=== PATIENT | male | born 2005 | race Caucasian/White ===

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

== ENCOUNTER 2024-04-06 12:03 | Outpatient (CLI) | payer OTHER, SELFPAY ==
--- NOTE | 2024-04-06 12:08 | XR_ITS ---
FINAL REPORT TECHNIQUE: Chest PA & Lateral CLINICAL HISTORY: SHORTNESS OF BREATH COMPARISON: 11/26/2022 FINDINGS: 2 views of the chest were performed. The heart size is normal. The mediastinum is within normal limits. There is no acute cardiopulmonary process. There are no pleural effusions. There is no pneumothorax. The bony thorax appears intact. IMPRESSION: No acute cardiopulmonary process. Reviewed, Interpreted and Dictated by Jamshid Oneil MD Transcribed by Rosaura Chisholm Authenticated and [facility]
== END 2024-04-06 23:59 | disposition home or self-care (01) ==
LOC: RAD 12:05
PROVIDERS: PCP Family Medicine; Visit Provider Nurse Practitioner
DX: R06.02 Shortness of breath (principal)
CPT/HCPCS: 71046

== ENCOUNTER 2024-04-06 19:26 | Emergency (ER) | payer OTHER, SELFPAY ==
[2024-04-06 19:30] VITALS: BP 136/89; PULSE 51; RESP 18; TEMP 36.9; O2SAT 97; BMI 17.4
--- NOTE | 2024-04-06 19:55 | ED_ITS ---
Discharge Plan Disposition Patient Disposition: Home, Self-Care Condition: Good Prescriptions Prescriptions: New amoxicillin-pot clavulanate 875-125 mg Tablet 1 tab PO Q12H Qty: 20 0RF ibuprofen 600 mg tablet 600 mg PO Q6HP PRN (Reason: Moderate Pain) Qty: 20 0RF Referrals Follow up/Referrals: Thomas Mello MD [Primary Care Provider] - See instructions Activity Restrictions/Add. Instructions Additional Instructions/Restrictions: Take medication as prescribed Use dental balls as you was instructed Warm salt water gargles may help with pain Call Dentist tomorrow and make appointment Clinical Impressions Clinical Impression: Dental infection Instructions Patient Instructions: DI for Dental Pain, DI for Tooth Abscess Discharge ED Provider: Taylor Adams [facility] General Stated complaint: RT side dental pain Mode of Arrival: Ambulatory Source of Information: Patient Limitations: No Limitations Time Seen by Provider: 04/06/24 19:55 Description of Symptoms (Recalled from Triage Doc. by RN): Pt's symptoms are top right jaw dental pain. HEENT Symptoms (Recalled from RN notes): Yes Resp Symptoms (Recalled from RN notes): No Skin Symptoms (Recalled from RN notes): No MS Symptoms (Recalled from RN notes): No Functional Status (Recalled from RN notes): n/a History of Present Illness Provider Complaint: Patient states that he has multiple broken and decaying teeth on his right upper jaw area States that he has been having some swelling and dental pain for several days and today the swelling and pain in his gums is worse so he came in to get some antibiotics to help with the infection until he can get into the dentist Related Data Previous Rx's Medication Instructions Recorded amoxicillin 875 mg-potassium 1 tab PO Q12H #20 tabs 04/06/24 clavulanate 125 mg tablet ibuprofen 600 mg tablet 600 mg PO Q6HP PRN Moderate Pain 04/06/24 #20 tabs Allergies Allergy/AdvReac Type Severity Reaction Status Date / Time No Known Allergies Allergy Verified 04/06/24 19:40 Worker's Comp Is this a Worker's Comp case?: No [facility] Disclaimer: The information contained in this section may have been updated after the patient was seen, as this information can be updated by other users. Social History Smoking Status: Never smoker alcohol intake: never substance use type: denies use current occupational status: student Travel in the last 8 weeks: None household members: family housing: house ROS Obtained: Yes All systems reviewed & no additional complaints except as documented and Yes Systems reviewed as appropriate & no additional complaints except as documented Constitutional Constitutional: Reports system reviewed and no additional complaints, except as documented and Reports as per HPI ENT Ears, Nose, Mouth, and Throat: Reports system reviewed and no additional complaints, except as documented, Reports as per HPI and Reports dental pain Cardiovascular Cardiovascular: Reports system reviewed and no additional complaints, except as documented and Reports as per HPI Respiratory Respiratory: Reports system reviewed and no additional complaints, except as documented and Reports as per HPI Gastrointestinal Gastrointestingal: Reports system reviewed and no additional complaints, except as documented and as per HPI Physical Exam General General appearance: alert and in no apparent distress ENT ENT exam: Present mucous membranes moist Expanded ENT Exam Teeth exam: Present dental caries, fractured tooth # and gingival swelling Respiratory Respiratory exam: Present normal lung sounds bilaterally; Absent respiratory distress or wheezes Cardiovascular Cardiovascular exam: Present regular rate, normal rhythm and normal heart sounds Neurological Exam Neurological exam: Present alert, oriented X3 and normal gait Medical Decision Making Sang Inquiry Pt receiving controlled substance: No Sang was queried for this patient: No Vital Signs: 04/06/24 19:30 Temperature 98.4 F Temperature Source Oral Pulse Rate [Right Radial] 51 L Respiratory Rate 18 Blood Pressure [Right Arm] 136/89 Blood Pressure Mean [Right Arm] 104 Blood Pressure Source [Right Arm] Automatic Cuff Blood Pressure Position [Right Arm] Sitting 02 Sat by Pulse Oximetry 97 Oxygen Delivery Method Room Air
[2024-04-06] MEDS: TETRACAINE/BENZOCAINE/BUTAMBEN 56 GM SPRAY TP (20:09)
[2024-04-06] MEDS: AMOXICILLIN/POT CLAVULAN 500MG TABLET 1 EACH PO (20:09)
[2024-04-06] MEDS: LIDOCAINE 2% VISCOUS SOL 15ML UDC 15 ML PO (20:09)
[2024-04-06 20:23] VITALS: BP 136/89; PULSE 51; RESP 18; TEMP 36.9; O2SAT 97
== END 2024-04-06 20:23 | disposition home or self-care (01) ==
PROVIDERS: Emergency Provider Nurse Practitioner; PCP Family Medicine
DX: K04.7 Periapical abscess without sinus (principal)
CPT/HCPCS: 99204; 99212; G0463

== ENCOUNTER 2025-09-26 07:19 | Outpatient (CLI) | payer OTHER, SELFPAY ==
--- OUTSIDE RECORDS SUMMARY | 2025-09-26 07:22 | XMS_ITS | Clinical Summary ---
Author Organization Healthcare Address [address] [place] [address] Care Team Providers Care [employer] Supervisor Name Role Phone Albino Mello MD Primary Care Provider Allergies No known active allergies Medications escitalopram (Lexapro) 10 MG tabletIndication s:Generalized anxiety disorder Take 1 tablet (10 mg total) by mouth 1 (one) time each day. 30 tablet 2 03/11/2023 Active Active Problems No known active problems Family History Medical History Relation Name Comments No Known Problems Father No Known Problems Mother Relation Name Status Comments Father Mother Social History Tobacco Use Types Packs/Day Years Used Date Smoking Tobacco: Never Passive Smoke Exposure: Current Smokeless Tobacco: Never Tobacco Cessation:Counseling Given: Not Answered Comments:Dad and Gmom smoke Alcohol Use Standard Drinks/Week Comments Never 0 (1 standard drink = 0.6 oz pur e alcohol) PHQ-2 Answer Date Recorded Patient Health Questionnaire-2 Score 3 03/14/2023 PHQ-9 Answer Date Recorded Patient Health Questionnaire-9 Score 11 03/14/2023 PHQ-2A Answer Date Recorded Patient Health Questionnaire-2 Score 3 03/14/2023 Sex and Gender Information Value Date Recorded Sex Assigned at Not on file Legal Sex Male 8:28 AM EDT Gender Identity Not on file Sexual Orientation Not on file Last Filed Vital Signs Vital Sign Reading Time Taken Comments Blood Pressure 126/72 09/03/2022 9:10 AM EDT Pulse 46 09/03/2022 9:10 AM EDT Temperature - - Respiratory Rate 15 09/03/2022 9:10 AM EDT Oxygen Saturation 99% 09/03/2022 9:10 AM EDT Inhaled Oxygen Concentration - - Weight 51.2 kg (112 lb 14 oz) 09/03/2022 9:10 AM EDT Height 168 cm (5' 6.14 ) 09/03/2022 9:10 AM EDT Body Mass Index 18.14 09/03/2022 9:10 AM EDT Plan of Treatment Health Maintenance Due Date Last Done Comments [facility]-HIV Screening 2004 [facility]-Hepatitis C Screening 2004 [facility]-/Child/Adol SDOH Screenings 2004 [facility]-IPV Vaccines (4 of 4 - 4-dose series) 07/12/2009 01/12/2009, 06/03/2005, 03/14/2005, Additional history exists [facility]- SDOH Screenings 2022 [facility]-Adult SDOH Screenings 2022 [facility]-Depression Screening 03/14/2024 03/14/2023, 02/16 [id number] Vaccine ( season) 2025 [facility]-Influenza Vaccine (#1) 2025 08/26/2018 [facility]-DTaP,Tdap,and Td Vaccines (7 - Td or Tdap) 01/06/2027 01/06/2017, 01/12/2009, 03/14/2007, Additional history exists [facility]-Zoster Vaccines (1 of 2) 2054 01/06/2017, 01/12/2009, 05/26/2006, Additional history exists [facility]-HIB Vaccines Completed 05/26/2006, , 03/14/2005, Additional history exists [facility]-Hepatitis B Vaccines Completed 006, 10/08/2005, 03/14/2005, Additional history exists [facility]-Pneumococcal Vaccine: Pediatrics (0 to 5 Years) and At-Risk Patients (6 to 49 Years) Aged Out 05/26/2006, 10/08/2005, 06/03/2005, Additional history exists No longer eligible based on patient's age to complete this topic [facility]-Varicella Vaccines Completed 7, 01/12/2009, 05/26/2006, Additional history exists HPV Vaccines Completed 08/26/2018, 01/06/2017 [facility]-Hepatitis A Vaccines Completed 08/26/2018, 12/19 [facility]-Rotavirus Vaccines Aged Out No lo nger eligible based on patient's age to complete this topic Insurance [employer] Care Teams [employer] Supervisor Relationship Specialty Start Date End Date Albino Mello MD [address] [place] [address] #1 #1 Mann S[place] [id number] PCP - General 08/05/22
--- OUTSIDE RECORDS SUMMARY | 2025-09-26 07:22 | XMS_ITS ---
Author Organization Unknown ENCOUNTERS Encounter Performer Location Date Diagnosis Diagnosis Status Pre Admit [facility] [address] [facility] [address] [place] [address] [id number] Emergency [address] [place] [address] [id number] [facility] Emergency Dennis Dupont [address] [place] [address] [id number] [facility] Pre Admit [place] [address] [place] [address] [id number] Outpatient Demarcus Barfield [facility] [address] [place] [address] [address] [facility] [address] [id number] [facility] Emergency Chuy Ulloa [address] [place] [address] [id number] *Note: Encounters from your own facility or health system may be excluded. Allergies, Adverse Reactions, Alerts Allergen Type Severity Identification Date Medications Name Date Quantity Days Supplied GPI Number
--- NOTE | 2025-09-26 07:30 | CT_ITS ---
FINAL REPORT TECHNIQUE: Multiple axial CT sections were performed through the sinuses without IV contrast. Coronal and sagittal reconstruction images were performed. This study was performed with techniques to keep radiation doses as low as reasonably achievable (ALARA). Individualized dose reduction techniques using automated exposure control or adjustment of mA and/or kV according to the patient's size were employed. CLINICAL HISTORY: rule out polyps and blockages- other issues COMPARISON: None FINDINGS: CT SINUSES: There is complete opacification of the right frontal and maxillary sinuses. There is partial opacification of the left frontal and right ethmoid sinuses. There is total opacification of the right ostiomeatal complex suggesting obstruction, which may be secondary to mucosal thickening or mass. The left sinuses are otherwise clear. There is left septal deviation measuring up to 5 mm in size with narrowing of the left nasal air passage. IMPRESSION: 1. Opacification of the right ostiomeatal complex suggesting obstruction, either by mucosal thickening or underlying mass. Reviewed, Interpreted and Dictated by Danette Schuster MD Transcribed by Magda Vu Authenticated and [facility]
== END 2025-09-26 23:59 | disposition home or self-care (01) ==
LOC: RAD 07:20
PROVIDERS: PCP Family Medicine; Visit Provider Nurse Practitioner
DX: J32.9 Chronic sinusitis, unspecified (principal); R93.0 Abnormal findings on diagnostic imaging of skull and head, not elsewhere classified
CPT/HCPCS: 70486